=== PATIENT | female | born 1995 | race Caucasian/White ===

== ENCOUNTER 2025-07-27 18:58 | Inpatient (IN) | payer BC, SELFPAY ==
[2025-07-27] VITALS (7 sets, daily range): BP systolic 98–144; BP diastolic 51–90; BMI 22.5; BMI 20.3
--- NOTE | 2025-07-27 14:26 | ED.GENMED ---
History of Present Illness
General
Chief Complaint: Abdominal Pain
Source: patient
Exam Limitations: none
Time Seen by Provider: 07/27/25 14:19
Nursing documentation reviewed up to this point in time: agreed with
History of Present Illness
History of Present Illness:
Patient to ED with complaint of severe diffuse abdominal pain. Symptoms started yesterday afternoon and continued through today. Denies fever. Reports chills. +n/v, no diarrhea. She has a history of crohns disease, on Stelara. Last dose was 3
weeks ago, no change in dose. Last BM 2 days ago which she reports is unusual for her. SHe reports she typically passes soft stool multiple times daily. LMP 3 days ago, normal for her. No urinary symptoms. Brought self to ED for eval.
Past History
Past History
ED Past Medical History: GERD and Other (Crohns ds, microcytic anemia)
ED Past Surgical History: None
Social History
Tobacco: Non-smoker
Alcohol: None
Personal: Single
Living: with family
Employment: Student
Family History
Family History: Other (Noncontributory)
Review of Systems
Review of Systems
Allergies reviewed?: Yes
All Other Systems: ROS reviewed and negative except as documented in HPI and ROS
Constitutional: Reports no symptoms
EENT: Reports no symptoms
Respiratory: Reports no symptoms
Cardiac: Reports no symptoms
ABD/GI: Reports abdominal pain, nausea and vomiting
: Reports no symptoms
Musculoskeletal: Reports no symptoms
Skin: Reports no symptoms
Neurological: Reports no symptoms
Psychiatric: Reports no symptoms
Phy Exam
General Physical Exam
General Presentation: moderate distress
General age: appears stated age
General Skin: warm and dry
General Habitus: normal
General Mental: alert
Gastrointestinal Exam
Gastrointestinal Exam: soft, no organomegaly, no pulsatile mass, non distended, no cva tenderness and guarding
Palpation: generalized: Severe tenderness
Auscultation of Abdomen: hyperactive
Musculoskeletal Exam
Musculoskeletal Exam: full ROM and neuro vasc intact
Skin Exam
Skin Exam: normal color, warm/dry and no rash
Psychiatric Exam
Psychiatric Exam: normal mood/affect
Course
Orders/Labs/Results
Orders:
Orders
07/27/25 14:24
HYDROmorphone [Dilaudid] 0.5 mg IV NOW STA
Ondansetron Injectable [Zofran] 4 mg IV NOW STA
07/27/25 14:25
0.9% Sodium Chloride 1000 ml [Nss] 1,000 ml IV BOLUS
07/27/25 14:26
CT Abd/pelvis W Iv Cont Urgent
Comment:
Reason For Exam: diffuse pain, vomiting
07/27/25 14:37
Complete Blood Count/With Diff Urgent
Comprehensive Metabolic Panel Urgent
HCG, Serum Qualitative Screen Urgent
Comment: ADD ON
Lipase Urgent
07/27/25 Dinner
NPO
Allow oral meds: Yes
Allow clear liquids: Sips of Clears
07/27/25 15:43
Add On- LAB Urgent
Comments:: tube in lab
Tests Added?: HCG
07/27/25 17:59
MethylPREDNISolone PF [Solu-Medrol Pf] 20 mg IV ONCE ONE
07/27/25 18:00
Consult Gastroenterology [GASTROINTESTINAL CONSULT] Urgent
Consulting Provider: Luis Meek
Was physician already notified: Yes
07/27/25 18:20
Admit/Transfer Patient As Directed
Co-Sign Provider:
Level of Care: Inpatient admission
Assign to:: Medical/Surgical
Physician / Group: jaxson
Diagnosis: partial SBO
Reason for Hospitalization: partial SBO, Chrohns
Expected length of stay greater than two midnights?: Yes
ELOS- Estimated Length of Stay in days: 2
I certify the patient meets the requirements for IP care: Yes
Code Status As Directed
Resuscitation Status: Full Code
PRN Pain Medication Management As Directed
May give lesser potent ordered pain med per pt: Yes
preference::
Protocol:: Medication orders for pain may be administered in a
manner that supports deferring to patient preference
when the pt is:
- Requesting an ordered lesser potent pain medication.
Least to most potent pain medications are defined
as: acetaminophen < NSAID < tramadol < opioids
(morphine, oxycodone, hydromorphone).
- Requesting a lesser dose of the same medication IF
ORDERED.
- Requesting a less intrusive route of administration
if both routes are prescribed by the provider (PO <
IV).
07/27/25 18:34
HYDROmorphone [Dilaudid] 0.5 mg IV NOW STA
07/27/25 18:35
HYDROmorphone [Dilaudid] 0.5 mg .ROUTE .STK-MED ONE
07/27/25 18:43
Urinalysis Reflex To Culture Urgent
Date Specimen was Collected: 07/27/25
Time Specimen was Collected: 18:42
Urine Microscopic Reflex Cult Urgent
07/27/25 19:39
0.9% Sodium Chloride 1000 ml [Nss] 1,000 ml IV 100 mls/hr
07/27/25 19:39
Activity As Directed
Activity Level: As Tolerated
Vital Signs As Directed
Frequency: Per unit guidelines
DX Deep Vein Thrombosis Video Routine
07/27/25 20:00
Heparin 5,000 units SC Q12
07/27/25 21:00
Ondansetron Injectable [Zofran] 4 mg IV Q6HPRN PRN
07/27/25 23:00
HYDROmorphone [Dilaudid] 0.5 mg IV Q4HPRN PRN
07/28/25 03:00
MethylPREDNISolone PF [Solu-Medrol Pf] 20 mg IV Q8H
07/28/25 06:28
Complete Blood Count/With Diff IN AM
Comprehensive Metabolic Panel IN AM
07/28/25 08:00
Fluoxetine HCl [Prozac] 40 mg PO DAILY
Abnormal Lab Results
07/27/25 07/27/25
14:37 18:43
Hgb 10.6 L g/dL
(12.0-16.0)
Hct 33.4 L %
(37.0-47.0)
MCV 71.2 L fL
(81.0-99.0)
MCH 22.6 L pg
(27.0-31.0)
MCHC 31.7 L g/dL
(33.0-37.0)
RDW 17.2 H %
(11.5-14.5)
Plt Count 553 H 10^3/uL
(130-400)
Absolute Lymphs (auto) 0.6 L 10^3/uL
(1.2-3.4)
Absolute Monos (auto) 0.9 H 10^3/uL
(0.1-0.6)
Neutrophils % 79.9 H %
(42.2-75.2)
Lymphocytes % 7.5 L %
(20.5-51.1)
Monocytes % 10.8 H %
(1.7-9.3)
Glucose 104 H mg/dl
(70-99)
Urine Ketones 2+ A
(Negative)
Ur Occult Blood Reflex 4+ A
(Negative)
Urine RBC 7-10 A /HPF
(0-2)
Urine Bacteria (Reflex) Few A
(Negative)
Urine Albumin (Reflex) 2+ A
(Neg - Trace)
07/27/25 14:37
07/27/25 14:37
Vital Signs
Initial and Last Documented VS:
Initial Vital Signs
Temp Pulse Resp BP Pulse Ox
97.8 F 110 20 144/90 99
07/27/25 13:39 07/27/25 13:39 07/27/25 13:39 07/27/25 13:39 07/27/25 13:39
Last Documented Vital Signs
Temp Pulse Resp BP Pulse Ox
99.1 F 80 16 116/71 98
07/28/25 15:52 07/28/25 15:52 07/28/25 15:52 07/28/25 15:52 07/28/25 15:52
*Radiology
Radiology exam reviewed: radiology read reviewed
*Pulse Oximetry
SaO2: 99
Oxygen Mode of Delivery: Room air
Patient hypoxic: no
*Critical Care Note
Total Time (30-74mins, 75-104mins- exclusive of procedures): Not Applicable
Update Note
Update Note:
Patient to ED wtih complaint of diffuse abdominal pain x 24 hours. Today worsening n/v. History of crohns disease, on stelara. NSS, she remains afebrile. Given IVF, dilaudid and zofran with improvement in comfort. No further vomiting in ED.
Labs reveiwed, WBC 8. CT report reviewed. Diffuse small bowel dilation with air fluid level and thickening of distal small bowel suspicous for inflammatory bowel disease, partial SBO. Dr. Meek consulted. Will admit to hosptialist. He request
solumedrol 20mg TID. First dose given in ED.
ED Attending Note
-
Portions of this chart may have been created with voice recognition software.� Occasional wrong word or��sound alike� substitutions may have occurred due to the inherent limitations of voice recognition software.
Discharge Plan
Departure
Patient Disposition: Admit
Date of Disposition: 07/27/25
Time of Disposition: 17:59
Presentation/result/management discussed w/ accepting MD/DO: Hospitalist
Patient with high blood pressure during this ER visit?: No
Condition: Fair
Covid-19: Not Applicable
Discharge Problem:
Crohn's disease, Partial small bowel obstruction
Interventions
Interventions:
*Risk Screen - Suicide Last Done: 07/27/25 14:44
*General Assessment Last Done: 07/27/25 14:44
*Neglect/Abuse Screening Last Done: 07/27/25 14:44
*ED- Fall Risk Assessment Last Done: 07/27/25 14:44
*ED COVID-19 Vaccine History Last Done: 07/27/25 14:44
*Nursing Disposition Last Done: 07/27/25 19:32
CB-Gdwxvo-Yefchwxabe Assessment Last Done: 07/27/25 15:00
Discharge Date and Time
Discharge Date/Time: 07/27/25 19:32
[2025-07-27] MEDS: NSS 1000 IV ×2 (14:38→19:50)
[2025-07-27] MEDS: DILAUDID 0.5 MG IV ×2 (14:40→18:38)
[2025-07-27] MEDS: ZOFRAN 4 MG IV (14:40)
[2025-07-27 14:57] LABS: Hematocrit 33.4 % (37.0-47.0); Hemoglobin 10.6 g/dL (12.0-16.0); Mean Corp Hgb Conc. 31.7 g/dL (33.0-37.0); Mean Corpuscular Volume 71.2 fL (81.0-99.0); Nucleated Red Blood Cells % 0 %; Platelet Count 553 10^3/uL (130-400); Red Cell Dist. Width 17.2 % (11.5-14.5)
--- NOTE | 2025-07-27 15:00 | EDRN ---
Pt is aware urine spec is needed.
[2025-07-27 15:13] LABS: ALT (SGPT) 22 U/L (0-35); AST (SGOT) 35 U/L (14-36); Albumin 4.1 g/dl (3.5-5.0); Alkaline Phosphatase 76 U/L (38-126); Blood Urea Nitrogen 14 mg/dl (7-17); Calcium 9.8 mg/dl (8.4-10.2); Carbon Dioxide 25 mmol/L (22-30); Chloride 105 mmol/L (98-107); Estimated Creatinine Clearance 105 ml/min; Glucose 104 mg/dl (70-99); Lipase 167 U/L (23-300); Potassium 4.6 mmol/L (3.5-5.1); Sodium 136 mmol/L (135-145); Total Protein 7.1 g/dl (6.3-8.2); eGFR > 60.00
--- NOTE | 2025-07-27 15:44 | EDRN ---
CT called for HCG. Caden Hough RECRUITING OPERATIONS CONSULTANT verbally said a serum HCG could be added on and it was.
[2025-07-27 16:12] LABS: HCG, Serum Qualitative Screen Negative
--- NOTE | 2025-07-27 18:22 | EDRN ---
altitude chamber technician in room to complete med rec at this time.
--- NOTE | 2025-07-27 18:24 | EDRN ---
Dr. Torre in room w/pt.
--- NOTE | 2025-07-27 18:29 | HPS.HSE ---
Family Physician
-
Family Physician: Yasemin Arita
Chief Complaint
-
abdominal pain
History of Present Illness
29-year-old female past medical history of Crohn's disease status post small bowel resection 7 years ago on Stelara for 2 years, microcytic anemia, GERD presenting with severe diffuse abdominal pain. Symptoms started yesterday. Denies fever but
did have chills. She did have nausea and vomiting without diarrhea. Last dose of Stelara was 3 weeks ago. Her last bowel movement 2 days ago which is unusual for her because she typically has multiple soft bowel movements per day. Last menstrual
period was 3 days ago which is normal for her. Denies urinary symptoms.
She states that she has been stable on Stelara for 2 years. Her GI doctors Dr. Mackenzie. No family history of Crohn's disease.
She denies smoking or drugs. Drinks alcohol occasionally.
Medical History
Past Medical History
Past Medical History: Reports Other (Crohn's disease status post small bowel resection 7 years ago on Stelara for 2 years, microcytic anemia, GERD)
Past Surgical History: Reports Bowel Resection
Social History
Tobacco: Non-smoker
Alcohol: Occasional
Drug: None
Family History
Family History: Not pertinent
Allergies / Home Medications
Allergies reflects when Allergies were last updated in [facility].
Home Medications with original date entered in [facility]
Allergy/Medication List:
Allergies
Allergy/AdvReac Type Severity Reaction Status Date / Time
No Known Allergies Allergy Verified 07/27/25 13:38
Home Medications
ustekinumab 45 mg/0.5 mL subcutaneous syringe (Stelara) 45 mg SC MONTHLY 06/03/21
fluoxetine 40 mg capsule 40 mg PO DAILY 07/27/25
Review of Systems
-
Constitutional: Reports No Symptoms
EENT: Reports No Symptoms
Respiratory: Reports No Symptoms
Cardiac: Reports No Symptoms
Abdomen/GI: Reports No Symptoms
: Reports No Symptoms
Musculoskeletal: Reports No Symptoms
Skin: Reports No Symptoms
Neurological: Reports No Symptoms
Endocrine: Reports No Symptoms
Hematologic/Lymphatic: Reports No Symptoms
Psych: Reports No Symptoms
Physical Exam
Vital Signs
Vital Signs
Temp Pulse Resp BP Pulse Ox
97.8 F 88 16 121/84 97
07/27/25 13:39 07/27/25 18:00 07/27/25 18:00 07/27/25 18:00 07/27/25 18:00
Physical Exam
General: Well Developed, Well Nourished and No Apparent Distress
HEENT: NormoCephalic, Moist mucous membranes and Atraumatic
Respiratory: Clear
Cardiac: S1/S2 and Regular Rhythm; No Murmur or Rub
GI: Soft, Non Distended, Normal Bowel Sounds and Tender (diffusely ); No Organomegaly
Rectal: Deferred by Provider
Musculoskeletal: No Clubbing, No Cyanosis and No Edema
Skin: No Rash
Neuro: Nonfocal/grossly intact
Laboratory Results
-
07/27/25 14:37
07/27/25 14:37
Laboratory Results
Total Bilirubin 0.8 mg/dl (0.2-1.3) 07/27/25 14:37
AST 35 U/L (14-36) 07/27/25 14:37
ALT 22 U/L (0-35) 07/27/25 14:37
Alkaline Phosphatase 76 U/L (38-126) 07/27/25 14:37
Lipase 167 U/L (23-300) 07/27/25 14:37
Data Reviewed
-
Lab Data: Labs Reviewed by me
Old Records: Reviewed
Impression/Plan
-
IMPRESSION:
PLAN:
# Partial small bowel obstruction secondary to Crohn's disease
# History of small bowel obstruction status post bowel resection 7 years ago
-CT abdomen pelvis shows widespread diffuse small bowel dilatation with air-fluid levels and thickened segment of the distal small bowel highly suspicious for involvement inflammatory bowel disease and at least partial small bowel obstruction, no
free air, borderline hepatomegaly, small bilateral nonobstructing renal calculi
- N.p.o.
- IV fluids
-Zofran, Dilaudid for pain
- GI consulted and recommending Solu-Medrol 20 mg 3 times daily
- General Surgery consult if no improvement
Crohn's disease
-On Stelara
Chronic microcytic anemia
- Hemoglobin stable
GERD
Anxiety/depression
- Continue fluoxetine
Full code
DVT prophylaxis�heparin
N.p.o.
[2025-07-27] MEDS: SOLU-MEDROL PF 20 MG IV (18:38)
[2025-07-27 18:50] LABS: Urine Character Clear (Clear)
[2025-07-27] MEDS: HEPARIN 5000 UNITS SC (20:26)
--- NOTE | 2025-07-27 20:30 | PTCARENOTE ---
Pt received from ED via stretcher at 1999. Pt pleasant, AAOx3, VSS, and able to ambulate into room without assistance. Pt complains of mild 1/10 lower abdominal pain. Pt receptive to room and call matias. Pt bed in lowest position and call matias within
reach. Pt educated on importance of call matias usage, pt relays understanding and cooperation. Will continue with current plan of care.
[2025-07-28] MEDS: SOLU-MEDROL PF 20 MG IV ×3 (02:45→18:08)
[2025-07-28] MEDS: DILAUDID 0.5 MG IV ×2 (02:52→19:27)
[2025-07-28] MEDS: NSS 1000 IV (06:20)
--- NOTE | 2025-07-28 07:06 | CON.GI ---
Addendum entered and electronically signed by Gin Oconnell DO 07/28/25 09:43:
The patient was seen and examined by me independently in collaboration with the nurse practitioner.
Past medical history/social history/medications/allergies/family history reviewed.
Lab data and imaging data reviewed.
Nanci is a 29-year-old female with past medical history of ileocolonic Crohn's status post ilio sick ectomy in March 2018 for small bowel obstruction who presents with worsening abdominal pain and constipation x 2 days. She reports at baseline
having 3-4 loose bowel movements or diarrhea daily, with nocturnal symptoms, again which is normal for her. On Sunday states she had worsening lower abdominal pain and bloating, thought it was from her menses. It got progressively worse, anytime
she tried to eat or drink she immediately vomited up. After not moving her bowels for 2 days she presented to the ER for evaluation. CT abdomen pelvis performed on arrival showed concern for small bowel obstruction of the terminal ileum. Upon
admission she had a bowel movement, endorses feeling significantly improved. She would like to try liquid diet. She follows as an outpatient with Dr. Mackenzie, last colonoscopy in 2022 with TI stricture, biopsies of stricture showed moderate active
chronic ileitis in the TI. She is currently on Stelara, previously failed remicade and entyvio. MRE in 12/2020 demonstrated severe active crohns disease involving the distal approx 7 cm of the ileum in the RLQ proximal to the ileocoloic anastomosis,
similar compared to MR in 2019.
Labs significant for acute on chronic microcytic anemia, hemoglobin 8.8 down from 10.6 yesterday, baseline hgb ~10.
Plan: pSBO in setting of TI stricture due to ileocolonic chrons, improving
-c/w IV steroids, trial liquid diet, if tolerates, t/c transitioning to PO steroids tomorrow
-fecal calprotectin, CRP, ESR, iron studies, B12
-she plans to switch providers to Dr. Simon, will see if we can expedite outpatient f/u
-needs repeat MRE, okay to perform outpatient as long as she continues to improve
-outpatient drug/antibody levels
-monitor H&H
-DVT prophylaxis
Original Note:
Consultation
-
Date/Time Consultation Requested: 07/27/25 1800
Date/Time Consultation Performed: 07/28/25 0800
Requesting Provider: PILAR Forbes
Performing Provider: PILAR Diop, Mary Oconnell DO
Reason for Consultation: abdominal pain
Medical History
Chief Complaint / HPI
Chief Complaint: abdominal pain with nausea and vomiting
History of Present Illness:
Pt is a 29yo presents with hx anemia, VSD with spontaneous closure, prior quant gold + testing with ID evaluation and no therapy recommended with neg CXR, GERD, anxiety/depression, crohns since age 13 and prior ileocecectomy march 2018 for SB
obstruction with failed Remicade and Entyvio and current Stelara therapy every 4 weeks since May 2021. She follows with Dr. Mackenzie but due to see Dr. Simon in November for second opinion. Her last follow up was in April and pt was recommended MRE
along with CBC, iron studies, and Stelara levels that have not been completed. Her last colonoscopy 05/2023- with quiescent colitis with stricture with TI with erosions inflammation in rectum. bx quiescent colitis with mild chronic active colitis
in rectum with focal erosions and moderate active chronic ileitis in TI . She now presents with abdominal pain. On admission CT with limitation with lack of oral contrast but mild widespread diffuse small bowel dilatation measuring up to 3.4-3.5
cm with some air-fluid level and markedly thickened segment of distal small bowel highly suspicious for involvement with Inflammatory Bowel Disease and at least partial small bowel obstruction. No free air. Apparent prior distal small bowel
surgery.Small volume free fluid.Small bilateral nonobstructing renal calculi. Borderline hepatomegaly. Labs with noted hbg 10.6, platelets 553 and stable chemistry.
At this time patient admits she was doing well. No hospitalization or steroid use since surgery many years ago. She began with symptoms of constipation then large volume emesis about 1-2 days prior to admission. Since admission she has had
BM and pain was 10/10 now 2/10. Typical stool pattern is 3 loose stools daily without blood. She denies issues with GERD, hematemesis, blood or black in stools. hx EGD 2017 with food residue in stomach, reg Z line, bx gastropathy neg H
pylori/metaplasia.
Past Medical History
Past Medical History: GERD, Psychiatric (anxiety, depression) and Other (crohns disease, Anemia, VSD spontaneously closed, congenital pulm valve abnormality, crohns disease, B12 deficiency, prior quanteferon gold +, repeat intermediate with neg CXR)
Past Surgical History: Other (ileocectomy with 25 cm and Small bowel and 6 cm segment of cecum)
Social History
Tobacco: Non-Smoker
Alcohol: None
Drug: None
Personal: Other (raul )
Living: With Family
Employment: Employed
Allergies / Home Medications
Allergy/AdvReac Type Severity Reaction Status Date / Time
No Known Allergies Allergy Verified 07/27/25 13:38
�Medication �Instructions �Recorded
ustekinumab 45 mg/0.5 mL 45 mg SC MONTHLY 06/03/21
subcutaneous syringe (Stelara)
fluoxetine 40 mg capsule 40 mg PO DAILY 07/27/25
Review of Systems
Vital Signs
Temp Pulse Resp BP Pulse Ox
97.7 F 65 14 99/51 99
07/27/25 23:10 07/27/25 23:10 07/27/25 23:10 07/27/25 23:10 07/27/25 23:10
Physical Exam
Exam
General: Well Developed, Well Nourished and Other (pale appearing )
HEENT: Normocephalic and Anicteric
Respiratory: Clear
Cardiac: Regular Rhythm
GI: Soft, Non Distended and Tender (minimal diffuse )
Musculoskeletal: No Clubbing and No Cyanosis
Skin: Warm and Dry
Neuro: Awake, Alert and AO x 3
Psych: Calm
Results
WBC 8.0 10^3/uL (4.8-10.8) 07/27/25 14:37
Hgb 10.6 g/dL (12.0-16.0) L 07/27/25 14:37
Hct 33.4 % (37.0-47.0) L 07/27/25 14:37
MCV 71.2 fL (81.0-99.0) L 07/27/25 14:37
Plt Count 553 10^3/uL (130-400) H 07/27/25 14:37
Absolute Neuts (auto) 6.4 10^3/uL (1.4-6.5) 07/27/25 14:37
Sodium 136 mmol/L (135-145) 07/27/25 14:37
Potassium 4.6 mmol/L (3.5-5.1) 07/27/25 14:37
Chloride 105 mmol/L (98-107) 07/27/25 14:37
Carbon Dioxide 25 mmol/L (22-30) 07/27/25 14:37
BUN 14 mg/dl (7-17) 07/27/25 14:37
Creatinine 0.6 mg/dL (0.6-1.0) 07/27/25 14:37
Calcium 9.8 mg/dl (8.4-10.2) 07/27/25 14:37
Total Bilirubin 0.8 mg/dl (0.2-1.3) 07/27/25 14:37
AST 35 U/L (14-36) 07/27/25 14:37
ALT 22 U/L (0-35) 07/27/25 14:37
Alkaline Phosphatase 76 U/L (38-126) 07/27/25 14:37
Lipase 167 U/L (23-300) 07/27/25 14:37
Diagnostic Image Results:
07/27/25 CT Abd/pelvis W Iv Cont
Markedly limited evaluation of intestinal tract as a result of lack of oral contrast and paucity of intra-abdominal/pelvic fat with mild widespread diffuse small bowel dilatation measuring up to 3.4-3.5 cm with some air-fluid level and markedly
thickened segment of distal small bowel highly suspicious for involvement with Inflammatory Bowel Disease and at least partial small bowel obstruction. No free air. Apparent prior distal small bowel surgery.
Small volume free fluid.
Small bilateral nonobstructing renal calculi.
Borderline hepatomegaly.
12/2020 MRE
Severe active Crohn's disease involving the distal approximate 7 cm of ileum in the right lower quadrant proximal to the ileocolic anastomosis, grossly similar in extent compared to prior exam from 11/20/2019. No MR evidence of fistula, sinus tract or
abscess.
Scattered prominent mesenteric lymph nodes throughout the left hemiabdomen, increased from prior and nonspecific.
Prior GI Procedures:
EGD: 2017 salguti - Normal second portion of the duodenum.
- A medium amount of food (residue) in the stomach.
- Z-line regular, 36 cm from the incisors.
- No gross lesions in esophagus.
- Normal mucosa was found in the entire stomach.
Biopsied.
Colonoscopy: 2022 Sal[facility] good prep to IC valvue - Stricture in the terminal ileum. Biopsied.
- Inflammation was not found on today's exam (based on
the endoscopic appearance of the mucosa) from the
sigmoid colon to the cecum. This was graded as
Rutgeerts Score i0 (no lesions in the distal ileum).
Biopsied.
- Inflammation was found in the rectum. This was
graded as Rutgeerts Score i1 (five or fewer aphthous
lesions). Biopsied.
bx quiescent colitis with mild chronic active colitis in rectum with focal erosions and moderate active chronic ileitis in TI
Assessment / Plan
-
Pt is a 29yo presents with hx anemia, VSD with spontaneous closure, prior quant gold + testing, GERD, anxiety/depression, crohns since age 13 and prior ileocecectomy march 2018 for SB obstruction with failed Remicade and Entyvio and current
Stelara therapy every 4 weeks since May 2021. She follows with Dr. Mackenzie but due to see Dr. Simon in November for second opinion. Her last colonoscopy 05/2023- with quiescent colitis with stricture with TI with erosions inflammation in rectum.
She now presents with abdominal pain. On admission CT with limitation with lack of oral contrast but mild widespread diffuse small bowel dilatation measuring up to 3.4-3.5 cm with some air-fluid level and markedly thickened segment of distal small
bowel highly suspicious for involvement with Inflammatory Bowel Disease and at least partial small bowel obstruction. No free air. Apparent prior distal small bowel surgery.Small volume free fluid.Small bilateral nonobstructing renal calculi.
Borderline hepatomegaly. Labs with noted hbg 10.6, platelets 553 and stable chemistry.
-abdominal pain
-hx crohns disease with CT concern for partial SB obstruction
-hx TI erosion 2022 colon and Severe active Crohn's disease involving the distal approximate 7 cm of ileum in the right lower quadrant proximal to the ileocolic anastomosis in 2020
-anemia
other medical problems:
-VSD with spontaneous closure
- prior quant gold + testing with prior ID eval
-hx B12 deficiency
- GERD
-anxiety/depression
PLAN:
etiology of symptom with concern for PSBO with crohns flare with prior noted TI erosions/stricture and distal ileal disase on MRE
pt already feeling better with IV steroids cont - solumedrol 20mg Q 8 hour
trend hbg with drop after admission
add iron studies, B12, folate
add CRP, ESR and fecal calprotectin
OP MRE but if not improving consider inpatient
OP drug levels
ok for trial of clears
will need close GI follow up - due to change to Dr. Simon- sent message to office to reschedule
-
-
Thank you for consultation and allowing me to participate in the patient's care. Please call the controller repairer and tester GI physician during the after hours with any questions or concerns.
[2025-07-28 08:11] LABS: Hematocrit 28.9 % (37.0-47.0); Hemoglobin 8.8 g/dL (12.0-16.0); Mean Corp Hgb Conc. 30.4 g/dL (33.0-37.0); Mean Corpuscular Volume 73.5 fL (81.0-99.0); Nucleated Red Blood Cells % 0 %; Platelet Count 452 10^3/uL (130-400); Red Cell Dist. Width 17.3 % (11.5-14.5)
[2025-07-28 08:14] VITALS: BP 100/59
[2025-07-28] MEDS: PROZAC 40 MG PO (09:11)
[2025-07-28] MEDS: HEPARIN 5000 UNITS SC ×2 (09:16→19:21)
--- NOTE | 2025-07-28 10:19 | CM ---
CM reviewed chart, patient seen bedside, initial assessment completed. Patient is a 29-year-old female with past medical history of Crohn's disease status post small bowel resection 7 years ago on Stelara for 2 years, microcytic anemia, GERD
presenting with severe diffuse abdominal pain.
Patient resides with her fiance in a two level home, no issues with steps, independent with ADLs/IADLS. Patient denies DME, VN/SNF hx. PCP Yasemin Arita, pharmacy [facility]. Patient confirms insurance. Patient requesting a
note with dates of hospitalization for return to work. CM will continue to follow for all discharge planning needs.
Plan; home no needs anticipated
[2025-07-28 10:54] LABS: ALT (SGPT) 18 U/L (0-35); AST (SGOT) 20 U/L (14-36); Albumin 3.3 g/dl (3.5-5.0); Alkaline Phosphatase 71 U/L (38-126); Blood Urea Nitrogen 10 mg/dl (7-17); Calcium 8.4 mg/dl (8.4-10.2); Carbon Dioxide 20 mmol/L (22-30); Chloride 112 mmol/L (98-107); Estimated Creatinine Clearance 105 ml/min; Glucose 85 mg/dl (70-99); Iron 28 ug/dl (37-170); Potassium 4.5 mmol/L (3.5-5.1); Sodium 139 mmol/L (135-145); Total Protein 5.7 g/dl (6.3-8.2); eGFR > 60.00
[2025-07-28 11:03] LABS: Total Iron Binding Capacity 351 ug/dl (265-497)
--- NOTE | 2025-07-28 12:27 | W.PN.HOSP.TC ---
Today's Communication/Plan
-
IV steroids
Monitor diet tolerance
If with nausea vomiting can restart IV fluids
trend hgb
Assessment / Plan
Assessment / Plan
General: Well Developed, Well Nourished and No Apparent Distress
HEENT: NormoCephalic, Moist mucous membranes and Atraumatic
Respiratory: Clear
Cardiac: S1/S2 and Regular Rhythm; No Murmur or Rub
GI: Soft, nondistended, tender to palpation suprapubic region and mild right lower quadrant; No Organomegaly
Rectal: Deferred by Provider
Musculoskeletal: No Clubbing, No Cyanosis and No Edema
Skin: No Rash
Neuro: Nonfocal/grossly intact
# Partial small bowel obstruction secondary to Crohn's disease TI stricture suspected
# History of small bowel obstruction status post bowel resection 7 years ago
-CT abdomen pelvis shows widespread diffuse small bowel dilatation with air-fluid levels and thickened segment of the distal small bowel highly suspicious for involvement inflammatory bowel disease and at least partial small bowel obstruction, no
free air, borderline hepatomegaly, small bilateral nonobstructing renal calculi
- Tolerating clears
- IV fluids
-Zofran, Dilaudid for pain
- Continue with IV Solu-Medrol seems to be improving.
- GI following. ESR elevated. CRP pending. Anemia panel pending.
#Anemia microcytic
-Drop in hemoglobin noted. No active luminal bleeding noted.? Dilutional due to IV fluids
-Anemia panel pending
Crohn's disease
-On Stelara
Chronic microcytic anemia
- Hemoglobin stable
GERD
Anxiety/depression
- Continue fluoxetine
Full code
DVT prophylaxis�heparin
Anticipated Discharge: > 48 hours
Subjective/Interval History
-
Date of Service: July 28, 2025
Denies any abdominal pain
Denies any nausea or vomiting
States feeling better compared to yesterday
Objective Data
-
Labs:
Laboratory Results
07/28/25
06:28
WBC 4.2 L
Hgb 8.8 L
Hct 28.9 L
Plt Count 452 H
Sodium 139
Potassium 4.5
Chloride 112 H
Carbon Dioxide 20 L
BUN 10
Creatinine 0.6
Glucose 85
Calcium 8.4
Total Bilirubin 0.4
AST 20
ALT 18
Alkaline Phosphatase 71
Vital Signs:
Vital Signs
Temp Pulse Resp BP Pulse Ox
97.7 F 71 16 100/59 99
07/28/25 08:14 07/28/25 08:14 07/28/25 08:14 07/28/25 08:14 07/28/25 11:19
I&O
07/27/25 07/28/25 07/29/25
06:59 06:59 06:59
Intake Total 1100 / 1100
Balance 1100 / 1100
[2025-07-28 13:55] LABS: C-Reactive Protein 44.10 mg/L (0.0-10.00)
[2025-07-28 14:56] LABS: Ferritin 10.3 ng/ml (6.24-137)
[2025-07-28 15:27] LABS: Folate 19.6 ng/ml (2.76-20); Vitamin B12 460 pg/ml (239-931)
[2025-07-28 15:52] VITALS: BP 116/71
[2025-07-28 23:00] VITALS: BP 93/58
[2025-07-29] MEDS: DILAUDID 0.5 MG IV (02:00)
[2025-07-29] MEDS: SOLU-MEDROL PF 20 MG IV ×3 (02:01→17:38)
[2025-07-29 07:28] LABS: Hematocrit 26.8 % (37.0-47.0); Hemoglobin 8.3 g/dL (12.0-16.0); Mean Corp Hgb Conc. 31.0 g/dL (33.0-37.0); Mean Corpuscular Volume 73.6 fL (81.0-99.0); Platelet Count 429 10^3/uL (130-400); Red Cell Dist. Width 17.5 % (11.5-14.5)
[2025-07-29 07:35] VITALS: BP 104/88
--- NOTE | 2025-07-29 09:06 | W.PN.GI.CBS2 ---
Addendum entered and electronically signed by Luis Meek MD 07/29/25 19:40:
I saw and examined the patient.
The REFRIGERATOR ROOM CLERK's note was reviewed and I agree with the note.
unable to tolerate full liquid because of abdominal discomfort
plan
continue CLD
continue IV solumedrol for now
MRE inpatient
trend CRP
stool calpro pending
outpatient f/u with on discharge
DVT prophylaxis with heparin
will follow
Addendum entered and electronically signed by PILAR Esparza 07/29/25 09:14:
cont SQ heparin as high risk for DVT prophylaxis as high risk for DVT with active IBD
Original Note:
Today's Communication / Plan
-
etiology of symptom with concern for PSBO with crohns flare with prior noted TI erosions/stricture and distal ileal disease on MRE
increased bloating and pain with full liquid diet last PM
will cont Solumedrol 20mg Q 8 hour
if tolerating diet trial low residue diet
discussed with patient if continued symptoms though today plan for MRE in AM and NPO after midnight -- will order tenative for AM
some drop in hbg
will add IV Iron with iron deficiency
CRP 44.1 ESR 49 and fecal calprotectin pending
OP drug levels - slip given to patient
updated nursing staff
will need close GI follow up - due to change to Dr. Simon- sent message to office to reschedule
Assessment / Plan
-
Pt is a 29yo presents with hx anemia, VSD with spontaneous closure, prior quant gold + testing, GERD, anxiety/depression, crohns since age 13 and prior ileocecectomy march 2018 for SB obstruction with failed Remicade and Entyvio and current
Stelara therapy every 4 weeks since May 2021. She follows with Dr. Mackenzie but due to see Dr. Simon in November for second opinion. Her last colonoscopy 05/2023- with quiescent colitis with stricture with TI with erosions inflammation in rectum.
She now presents with abdominal pain. On admission CT with limitation with lack of oral contrast but mild widespread diffuse small bowel dilatation measuring up to 3.4-3.5 cm with some air-fluid level and markedly thickened segment of distal small
bowel highly suspicious for involvement with Inflammatory Bowel Disease and at least partial small bowel obstruction. No free air. Apparent prior distal small bowel surgery.Small volume free fluid.Small bilateral nonobstructing renal calculi.
Borderline hepatomegaly. Labs with noted hbg 10.6, platelets 553 and stable chemistry.
-abdominal pain
-hx crohns disease with CT concern for partial SB obstruction
-hx TI erosion 2022 colon and Severe active Crohn's disease involving the distal approximate 7 cm of ileum in the right lower quadrant proximal to the ileocolic anastomosis in 2020
-anemia with iron deficiency
other medical problems:
-VSD with spontaneous closure
- prior quant gold + testing with prior ID eval
-hx B12 deficiency
- GERD
-anxiety/depression
PLAN:
etiology of symptom with concern for PSBO with crohns flare with prior noted TI erosions/stricture and distal ileal disease on MRE
increased bloating and pain with full liquid diet last PM
will cont solumedrol 20mg Q 8 hour
if tolerating diet trial low residue diet
discussed with patient if continued symptoms though today plan for MRE in AM and NPO after midnight
some drop in hbg
will add IV Iron with iron deficiency
CRP 44.1 ESR 49 and fecal calprotectin pending
OP drug levels - slip given to patient
updated nursing staff
will need close GI follow up - due to change to Dr. Simon- sent message to office to reschedule
Subjective
Subjective
Date of Service: July 29, 2025
Pt with some pain and bloating after full liquid dinner, 07/28 brown loose stools
Objective
Data Reviewed
Laboratory Data:
Laboratory Results
07/29/25 06:21
07/28/25 06:28
Laboratory Results
Total Bilirubin 0.4 mg/dl (0.2-1.3) 07/28/25 06:28
AST 20 U/L (14-36) 07/28/25 06:28
ALT 18 U/L (0-35) 07/28/25 06:28
Alkaline Phosphatase 71 U/L (38-126) 07/28/25 06:28
Lipase 167 U/L (23-300) 07/27/25 14:37
Vital Signs and I&O:
Vital Signs
Temp Pulse Resp BP Pulse Ox
98.3 F 70 16 104/88 100
07/29/25 07:35 07/29/25 07:35 07/29/25 07:35 07/29/25 07:35 07/29/25 07:35
I&O
07/28/25 07/29/25 07/30/25
06:59 06:59 06:59
Intake Total 1100 / 1100
Output Total 100 / 100
Balance 1100 / 1100 -100 / -100
Physical Exam
Physical Exam
HEENT: Anicteric and Moist mucous membranes
Cardiology: Normal Sinus Rhythm
Pulmonary: Clear
GI: Soft, Non Distended and Tender
Extremities: No Edema
Neuro: Non Focal
[2025-07-29] MEDS: PROZAC 40 MG PO (09:33)
[2025-07-29] MEDS: HEPARIN 5000 UNITS SC ×2 (09:43→19:49)
--- NOTE | 2025-07-29 12:27 | W.PN.HOSP.TC ---
Today's Communication/Plan
-
fulls
If with nausea and vomiting then start IV fluids
Continue with IV steroids
Trend hemoglobin
Assessment / Plan
Assessment / Plan
General: Well Developed, Well Nourished and No Apparent Distress
HEENT: NormoCephalic, Moist mucous membranes and Atraumatic
Respiratory: Clear
Cardiac: S1/S2 and Regular Rhythm; No Murmur or Rub
GI: Soft, nondistended, tender to palpation suprapubic region and mild right lower quadrant; No Organomegaly
Rectal: Deferred by Provider
Musculoskeletal: No Clubbing, No Cyanosis and No Edema
Skin: No Rash
Neuro: Nonfocal/grossly intact
# Partial small bowel obstruction secondary to Crohn's disease TI stricture suspected
# History of small bowel obstruction status post bowel resection 7 years ago
-CT abdomen pelvis shows widespread diffuse small bowel dilatation with air-fluid levels and thickened segment of the distal small bowel highly suspicious for involvement inflammatory bowel disease and at least partial small bowel obstruction, no
free air, borderline hepatomegaly, small bilateral nonobstructing renal calculi
-Continue with fulls. If tolerating can plan to advance to LR.
-If no improvement in pain plan for tentative MRI in the morning.
-Zofran, Dilaudid for pain
-Continue with IV Solu-Medrol seems to be improving.
-GI following. ESR elevated. CRP pending. Anemia panel pending.
#Anemia microcytic
-Drop in hemoglobin noted. No active luminal bleeding noted.? Dilutional due to IV fluids
- IV iron added by gastroenterology
- Will also add B12 supplementation
- No luminal bleeding noted.
#Crohn's disease
-On Stelara as outpatient
Chronic microcytic anemia
- Hemoglobin stable
GERD
Anxiety/depression
- Continue fluoxetine
Full code
DVT prophylaxis�heparin
Anticipated Discharge: > 48 hours
Subjective/Interval History
-
Date of Service: July 29, 2025
States of some abdominal bloating after eating dinner last night
No severe pain this morning
Had bowel movement overnight
Objective Data
-
Labs:
Laboratory Results
07/29/25
06:21
WBC 4.0 L
Hgb 8.3 L
Hct 26.8 L
Plt Count 429 H
Vital Signs:
Vital Signs
Temp Pulse Resp BP Pulse Ox
98.3 F 70 16 104/88 99
07/29/25 07:35 07/29/25 07:35 07/29/25 07:35 07/29/25 07:35 07/29/25 11:17
I&O
07/28/25 07/29/25 07/30/25
06:59 06:59 06:59
Intake Total 1100 / 1100
Output Total 100 / 100
Balance 1100 / 1100 -100 / -100
[2025-07-29] MEDS: FERRLECIT 110 MG IV (13:23)
--- NOTE | 2025-07-29 13:53 | CM ---
CM reviewed chart, plan for tentative MRI in morning.
Patient requesting a note with dates of hospitalization for return to work.
CM will continue to follow for all discharge planning needs.
Plan; home no needs likely when medically stable
[2025-07-29 15:55] VITALS: BP 100/66
[2025-07-29] MEDS: TYLENOL 650 MG PO (20:54)
--- NOTE | 2025-07-29 22:18 | PTCARENOTE ---
Pt called and stated after having pudding she felt cramping pain in her lower abdomen. pt rating it 4/10. only PRN pain med ordered is dilaudid, devon Hoffmann notified and put orders in for prn tylenol. Medication given and pt observed asleep
afterwards.
[2025-07-29 23:04] VITALS: BP 103/89
[2025-07-30] MEDS: SOLU-MEDROL PF 20 MG IV ×3 (03:04→18:02)
[2025-07-30 06:51] LABS: Hematocrit 28.4 % (37.0-47.0); Hemoglobin 8.9 g/dL (12.0-16.0); Mean Corp Hgb Conc. 31.3 g/dL (33.0-37.0); Mean Corpuscular Volume 73.2 fL (81.0-99.0); Nucleated Red Blood Cells % 0 %; Platelet Count 460 10^3/uL (130-400); Red Cell Dist. Width 17.6 % (11.5-14.5)
[2025-07-30 07:00] LABS: Blood Urea Nitrogen 5 mg/dl (7-17); Calcium 9.1 mg/dl (8.4-10.2); Carbon Dioxide 26 mmol/L (22-30); Chloride 109 mmol/L (98-107); Estimated Creatinine Clearance 105 ml/min; Glucose 107 mg/dl (70-99); Potassium 4.4 mmol/L (3.5-5.1); Sodium 137 mmol/L (135-145); eGFR > 60.00
[2025-07-30 07:02] LABS: C-Reactive Protein 8.60 mg/L (0.0-10.00)
[2025-07-30 08:41] VITALS: BP 117/64
[2025-07-30] MEDS: HEPARIN 5000 UNITS SC ×2 (08:54→20:15)
[2025-07-30] MEDS: PROZAC 40 MG PO (08:55)
[2025-07-30] MEDS: VITAMIN B-12 1000 MCG PO (09:07)
--- NOTE | 2025-07-30 11:53 | W.PN.HOSP.TC ---
Today's Communication/Plan
-
Advance diet and monitor for tolerance
Continue with IV steroids
Await MRE
Assessment / Plan
Assessment / Plan
General: Well Developed, Well Nourished and No Apparent Distress
HEENT: NormoCephalic, Moist mucous membranes and Atraumatic
Respiratory: Clear
Cardiac: S1/S2 and Regular Rhythm; No Murmur or Rub
GI: Soft, nondistended, tender to palpation suprapubic region and mild right lower quadrant; No Organomegaly
Rectal: Deferred by Provider
Musculoskeletal: No Clubbing, No Cyanosis and No Edema
Skin: No Rash
Neuro: Nonfocal/grossly intact
# Partial small bowel obstruction secondary to Crohn's disease TI stricture suspected
# History of small bowel obstruction status post bowel resection 7 years ago
-CT abdomen pelvis shows widespread diffuse small bowel dilatation with air-fluid levels and thickened segment of the distal small bowel highly suspicious for involvement inflammatory bowel disease and at least partial small bowel obstruction, no
free air, borderline hepatomegaly, small bilateral nonobstructing renal calculi
-Plan for MR enterography today
-Post MRI. Restart diet and monitor for tolerance.
-Zofran, Dilaudid for pain
-Continue with IV Solu-Medrol seems to be improving.
-GI following. ESR elevated. CRP normal.
#Anemia microcytic
-Drop in hemoglobin noted. No active luminal bleeding noted.? Dilutional due to IV fluids
- IV iron added by gastroenterology
- Will also add B12 supplementation
- No luminal bleeding noted. Hemoglobin improved to 8.9.
#Crohn's disease
-On Stelara as outpatient
Chronic microcytic anemia
- Hemoglobin stable
GERD
Anxiety/depression
- Continue fluoxetine
Full code
DVT prophylaxis�heparin
dw with GI
Anticipated Discharge: Within 24 hours
Subjective/Interval History
-
Date of Service: July 30, 2025
States she ate some pudding last night leading to abdominal pain
Currently denies any abdominal pain
Denies any lightheadedness or dizziness
Objective Data
-
Labs:
Laboratory Results
07/30/25
06:09
WBC 5.5
Hgb 8.9 L
Hct 28.4 L
Plt Count 460 H
Sodium 137
Potassium 4.4
Chloride 109 H
Carbon Dioxide 26
BUN 5 L
Creatinine 0.6
Glucose 107 H
Calcium 9.1
Vital Signs:
Vital Signs
Temp Pulse Resp BP Pulse Ox
97.4 F 64 16 117/64 100
07/30/25 08:41 07/30/25 08:41 07/30/25 08:41 07/30/25 08:41 07/30/25 08:41
I&O
07/29/25 07/30/25 07/31/25
06:59 06:59 06:59
Intake Total 840 / 840
Output Total 100 / 100
Balance -100 / -100 840 / 840
[2025-07-30] MEDS: FERRLECIT 110 MG IV (13:32)
--- NOTE | 2025-07-30 14:06 | CM ---
CM reviewed chart, care ongoing. Advance diet, continue IV steroids.
Patient requesting a note with dates of hospitalization for return to work.
CM will continue to follow for all discharge planning needs.
Plan; home no needs when stable
--- NOTE | 2025-07-30 15:24 | W.PN.GI.CBS2 ---
Today's Communication / Plan
-
Advance diet as tolerated
Continue IV steroids
Assessment / Plan
-
Pt is a 29yo presents with hx anemia, VSD with spontaneous closure, prior quant gold + testing, GERD, anxiety/depression, crohns since age 13 and prior ileocecectomy march 2018 for SB obstruction with failed Remicade and Entyvio and current
Stelara therapy every 4 weeks since May 2021. She follows with Dr. Mackenzie but due to see Dr. Simon in November for second opinion. Her last colonoscopy 05/2023- with quiescent colitis with stricture with TI with erosions inflammation in rectum.
She now presents with abdominal pain. On admission CT with limitation with lack of oral contrast but mild widespread diffuse small bowel dilatation measuring up to 3.4-3.5 cm with some air-fluid level and markedly thickened segment of distal small
bowel highly suspicious for involvement with Inflammatory Bowel Disease and at least partial small bowel obstruction. No free air. Apparent prior distal small bowel surgery.Small volume free fluid.Small bilateral nonobstructing renal calculi.
Borderline hepatomegaly. Labs with noted hbg 10.6, platelets 553 and stable chemistry.
-abdominal pain
-hx crohns disease with CT concern for partial SB obstruction
-hx TI erosion 2022 colon and Severe active Crohn's disease involving the distal approximate 7 cm of ileum in the right lower quadrant proximal to the ileocolic anastomosis in 2020
-anemia with iron deficiency
other medical problems:
-VSD with spontaneous closure
- prior quant gold + testing with prior ID eval
-hx B12 deficiency
- GERD
-anxiety/depression
MRE 07/30
IMPRESSION: 6 cm area of stricture involving the distal ileum with enhancement or wall thickening suggesting a component of active Crohn's disease. Suggestion of segmentally dilated loop of bowel with skip lesion just proximal to the stricture
within the distal ileum.
Compared to CT of the abdomen and pelvis from July 27, 2025, improvement in findings of small bowel obstruction. Interval resolution of free fluid in the abdomen and pelvis.
Suggestion of wall thickening involving loops of the proximal to mid ileum and possibly the distal jejunum, nonspecific finding of enteritis. Crohn's disease involvement of these loops of small bowel is possible.
PLAN:
Clinically improving with IV steroids. CRP normal now. Tolerating clear liquid. Patient will try full liquid diet today
will cont solumedrol 20mg Q 8 hour
if tolerating diet trial low residue diet
add IV Iron with iron deficiency
fecal calprotectin pending
OP drug levels - slip given to patient by POULTRY PICKER
will need close GI follow up - due to change to Dr. Simon- sent message to office to reschedule by [employer]
Total Time Spent with Patient (in minutes): 35
Subjective
Subjective
Date of Service: July 30, 2025
Patient was feeling better this a.m. Claims abdominal pain is better. Underwent MRE
Objective
Data Reviewed
Laboratory Data:
Laboratory Results
07/30/25 06:09
07/30/25 06:09
Laboratory Results
Total Bilirubin 0.4 mg/dl (0.2-1.3) 07/28/25 06:28
AST 20 U/L (14-36) 07/28/25 06:28
ALT 18 U/L (0-35) 07/28/25 06:28
Alkaline Phosphatase 71 U/L (38-126) 07/28/25 06:28
Lipase 167 U/L (23-300) 07/27/25 14:37
Vital Signs and I&O:
Vital Signs
Temp Pulse Resp BP Pulse Ox
97.4 F 64 16 117/64 100
07/30/25 08:41 07/30/25 08:41 07/30/25 08:41 07/30/25 08:41 07/30/25 08:41
I&O
07/29/25 07/30/25 07/31/25
06:59 06:59 06:59
Intake Total 840 / 840
Output Total 100 / 100
Balance -100 / -100 840 / 840
Physical Exam
Physical Exam
GI: Soft, Non Distended and Non Tender
[2025-07-30 19:00] VITALS: BP 107/71
[2025-07-30 23:00] VITALS: BP 108/72
[2025-07-31] MEDS: SOLU-MEDROL PF 20 MG IV ×2 (02:29→11:41)
[2025-07-31 07:12] VITALS: BP 114/62
[2025-07-31] MEDS: VITAMIN B-12 1000 MCG PO (08:22)
[2025-07-31] MEDS: PROZAC 40 MG PO (08:22)
[2025-07-31] MEDS: HEPARIN 5000 UNITS SC (08:22)
--- NOTE | 2025-07-31 11:27 | W.PN.HOSP.TC ---
Today's Communication/Plan
-
P.o. steroids
OP GI f/u
Assessment / Plan
Assessment / Plan
General: Well Developed, Well Nourished and No Apparent Distress
HEENT: NormoCephalic, Moist mucous membranes and Atraumatic
Respiratory: Clear
Cardiac: S1/S2 and Regular Rhythm; No Murmur or Rub
GI: Soft, nondistended, tender to palpation suprapubic region and mild right lower quadrant; No Organomegaly
Rectal: Deferred by Provider
Musculoskeletal: No Clubbing, No Cyanosis and No Edema
Skin: No Rash
Neuro: Nonfocal/grossly intact
# Partial small bowel obstruction secondary to Crohn's disease TI stricture suspected
# History of small bowel obstruction status post bowel resection 7 years ago
-CT abdomen pelvis shows widespread diffuse small bowel dilatation with air-fluid levels and thickened segment of the distal small bowel highly suspicious for involvement inflammatory bowel disease and at least partial small bowel obstruction, no
free air, borderline hepatomegaly, small bilateral nonobstructing renal calculi
- Status post MR enterography.
- Patient tolerating low residue diet without any difficulty.
-Zofran, Dilaudid for pain
-Continue with IV Solu-Medrol seems to be improving. Plan discussed with gastroenterology to transition patient to 40 mg of prednisone and taper by 10 mg q. weekly till 20 mg which need to be continued until seen by GI in the office.
-GI following. ESR elevated. CRP normal. States she she is due for Stelara as outpatient however per GI will need to be seen in the office before infusion. GI will arrange outpatient office visit.
#Anemia microcytic
-Drop in hemoglobin noted. No active luminal bleeding noted.? Dilutional due to IV fluids
- IV iron added by gastroenterology
- Will also add B12 supplementation
- No luminal bleeding noted. Hemoglobin improved to 8.9.
#Crohn's disease
-On Stelara as outpatient
Chronic microcytic anemia
- Hemoglobin stable
GERD
Anxiety/depression
- Continue fluoxetine
Full code
DVT prophylaxis�heparin
dw with GI
More than 30 minutes spent in discharge including
Final examination of the patient
Summarizing hospital stay
Instructions for continuing care to all relevant caregivers
Preparation of discharge records, prescriptions, and referral forms
Total time spent (in minutes): 52
Anticipated Discharge: Today
Subjective/Interval History
-
Date of Service: July 31, 2025
Tolerating low residue diet without any abdominal pain, nausea, vomiting
Having bowel movements without any difficulty
Objective Data
-
Vital Signs:
Vital Signs
Temp Pulse Resp BP Pulse Ox
98.0 F 68 18 114/62 99
07/31/25 07:12 07/31/25 07:12 07/31/25 07:12 07/31/25 07:12 07/31/25 07:12
I&O
07/30/25 07/31/25 08/01/25
06:59 06:59 06:59
Intake Total 840 / 840 480 / 480
Balance 840 / 840 480 / 480
--- NOTE | 2025-07-31 11:31 | W.DCSUMMARY ---
Discharge Summary
Discharge Data
Date of Admission: 07/27/25
Date of Discharge: 07/31/25
-
Pending Results: Yes
Additional Pending Results:
Fecal Calprotecin with GI in office.
Hospital Course
29-year-old female past medical history of Crohn's disease, small bowel obstruction s/p resection who is present with nausea vomiting abdominal pain. Patient underwent CT abdomen pelvis shows widespread diffuse small bowel dilatation with air-fluid
levels and thickened segment of the distal small bowel highly suspicious for involvement inflammatory bowel disease and at least partial small bowel obstruction, no free air, borderline hepatomegaly, small bilateral nonobstructing renal calculi.
Patient was kept NPO. Start IV fluids. GI was consulted. Patient was started on IV steroids. GI recommendation for Solu-Medrol 20 mg every 8 hours. Patient with improvement and was started on liquids. Patient did have episode abdominal pain
after trying pudding. Patient underwent MR enterography 6 cm area of stricture involving the distal ileum with enhancement or wall thickening suggesting a component of active Crohn's disease. Suggestion of segmentally dilated loop of bowel with
skip lesion just proximal to the stricture within the distal ileum. Compared to CT of the abdomen and pelvis from July 27, 2025, improvement in findings of small bowel obstruction. Interval resolution of free fluid in the abdomen and pelvis.
Patient abdominal discomfort started to improve. Diet was advanced to low residue which she was able to tolerated. Patient was also found to be mildly iron deficient received IV iron. B12 supplementation was also started. Patient was tolerating
diet without any difficulty. Discussed with gastroenterology okay for discharge home with prednisone 40 mg daily and reduced 10 mg q. weekly until 20 mg and until seen GI per gastroenterology in the office.
Discharge Plan
-
Patient Disposition: Home (Routine Discharge)
Discharge Diagnosis/Procedures: Abdominal pain likely secondary to partial small bowel obstruction in the setting of Crohn's disease
Microcytic iron and vitamin B12 deficiency anemia
Condition: Fair
Diet: Low Residue
Activity: As tolerated
Driving Restrictions: As prior to admission
Activity Restrictions/Additional Instructions:
Take prednisone 40 mg po daily for a week, 30mg for a week, 20mg daily until seen by gastroenterology in the office.
Stand Alone Forms: Return to Work
Referrals:
Josef Simon MD [Active, Gastroenterology] - 08/14/25 7:30 am
Yasemin Arita MD [Family Provider, [facility]] - in less than 1 week
Prescriptions:
New
cyanocobalamin (vitamin B-12) 1,000 mcg capsule
1,000 mcg PO DAILY Qty: 30 0RF
prednisone 10 mg Tablet
See Rx Instructions .ROUTE .COMPLEX Qty: 65 0RF
Rx Instructions:
Take By Mouth:
40 mg daily x7 days, 30 mg daily x7 days,
20 mg daily till GI eval
ferrous sulfate 325 mg (65 mg iron) tablet
325 mg PO DAILY Qty: 30 0RF
Continued
ustekinumab [Stelara] 45 MG/0.5 ML syringe
45 mg SC MONTHLY
fluoxetine 40 mg Capsule
40 mg PO DAILY
Discharge Orders:
Discharge Patient (As Directed); Ordered 07/31/25
Ordered By: Kev Dixon
Discharge Date and Time
Discharge Date/Time: 07/31/25 12:55
Print Language: MOHAWK
[2025-07-31 12:04] VITALS: BP 107/65
--- NOTE | 2025-07-31 12:08 | CM ---
CM reviewed chart, patient seen bedside with sister, for discharge today.
Note provided for return to work. Sister to transport home.
Plan; home no needs.
[2025-08-03 10:02] LABS: Calprotectin, Fecal 1460 ug/g (<=49)
== END 2025-07-31 12:55 | disposition home or self-care (01) | DRG 387 ==
LOC: 4 WEST ACU 18:58
PROVIDERS: Nurse Practitioner; Nurse Practitioner Adult Health; ADMITTING PHYSICIAN Hospitalist; ATTENDING PHYSICIAN Hospitalist; EMERGENCY PHYSICIAN Student in an Organized Health Care Education/Training Program; FAMILY PHYSICIAN Family Medicine; OTHER PHYSICIAN Internal Medicine
DX: K50.812 Crohn's disease of both small and large intestine with intestinal obstruction (principal); K21.9 Gastro-esophageal reflux disease without esophagitis; D51.9 Vitamin B12 deficiency anemia, unspecified; D50.9 Iron deficiency anemia, unspecified; F32.A Depression, unspecified; F41.9 Anxiety disorder, unspecified; N20.0 Calculus of kidney; Z87.74 Personal history of (corrected) congenital malformations of heart and circulatory system; Z90.49 Acquired absence of other specified parts of digestive tract; Z79.52 Long term (current) use of systemic steroids
CPT/HCPCS: 72197; 74177; 74183; 80048; 80053; 81003; 81015; 82607; 82728; 82746; 83540; 83550; 83690; 83993; 84703; 85025; 85027; 85652; 86140; 96361; 96374; 96375; 99285; A9585; J2916; Q9967